=== PATIENT | female | born 1935 | race Caucasian/White ===

== ENCOUNTER 2016-09-07 23:34 | Emergency (ER) | payer SELFPAY ==
--- NOTE | 2016-09-07 23:46 | ED CRITICAL CARE ---
History of Present Illness General Chief Complaint: Cardiopulmonary Resuscitation Stated Complaint: BIBA CPR Source: family, old records, EMS Exam Limitations: clinical condition Vital Signs & Intake/Output Vital Signs & Intake/Output ED Intake and Output 09/08 0000 09/07 1200 Intake Total 1500 Output Total Balance 1500 Intake, IV 1500 Patient 140 lb Weight Allergies Coded Allergies: UNOBTAINABLE (09/07/16) Triage Nurses Notes Reviewed? yes Onset: Just prior to arrival Duration: minute(s):, constant, continues in ED Timing: recent history Injury Environment: home Severity: severe Pain Location: none LMP (ages 10-50): post menopausal : No Patient currently breastfeeds: No HPI: Prior to admission patient and spouse finished eating ice cream and were watching TV. Her spouse heard snoring respiration so he tried to wake her and was unsuccessful. He called 911 and started CPR. EMS began ACLS protocol for ventricular fibrillation and had return of spontaneous circulation for 30 seconds and then asystole. Spouse reports there is no fever chills nausea vomiting diarrhea abdominal pain chest pain shortness of breath headache dysuria rash bleeding. Past History Medical History Any Pertinent Medical History? see below for history Cardiovascular: hypertension Surgical History Surgical History: non-contributory Family History Hx Contributory? No Review of Systems Review of Systems Constitutional: Reports: no symptoms. Eyes: Reports: no symptoms. Ears, Nose, Throat, Mouth: Reports: no symptoms. Respiratory: Reports: no symptoms. Cardiovascular: Reports: no symptoms. Gastrointestinal/Abdominal: Reports: no symptoms. Genitourinary: Reports: no symptoms. Musculoskeletal: Reports: no symptoms. Skin: Reports: no symptoms. Neurological/Psychological: Reports: no symptoms. All Other Systems: Reviewed and Negative Comments Per spouse Physical Exam Physical Exam General Appearance: severe distress Head: atraumatic Eyes: Bilateral: other (pupils fixed dilated). Ears, Nose, Throat, Mouth: moist mucous membrane Neck: normal inspection, supple Respiratory: no breath sounds Cardiovascular: no heart sounds Peripheral Pulses: 0 carotid (R), 0 carotid (L), 0 femoral (R), 0 femoral (L) Gastrointestinal: soft Genital/Rectal: normal genital exam Back: normal inspection Extremities: normal range of motion Neurologic/Psych: motor/sensory deficits Skin: pallor Core Measures ACS in differential dx? Yes ASA ordered for poss ACS? No-other contraindication CVA/TIA Diagnosis: No Severe Sepsis Present: No Septic Shock Present: No Progress Differential Diagnoses I considered the following diagnoses in my evaluation of the patient: Acute VA ventricular fibrillation arrest asystole ruptured aneurysm Plan of Care: pronounced 1139PM Initial ED EKG: none Rhythm Strip: asystole Comments: Family notified. ME notified. package completed Departure Departure Time of Disposition: 2338 Disposition: Condition: Stable Clinical Impression Primary Impression: Cardiac arrest with ventricular fibrillation Referrals: LANIE SINGLETON,[place] (PCP/Family) Departure Forms: General Discharge Information Procedures Ultrasound Ultrasound: no cardiac activity Critical Care Note Critical Care Note Critical Care Time: 30-74 min (35)
== END 2016-09-08 02:50 | disposition expired ==
LOC: ERH 23:34
DX: I46.9 Cardiac arrest, cause unspecified (principal); I48.91 Unspecified atrial fibrillation
CPT/HCPCS: 1387; 94799